=== PATIENT | female | born 1950 | race Caucasian/White ===

== ENCOUNTER 2020-08-13 08:47 | Day surgery (SDC) | payer MEDICARE, BC ==
[2020-08-08 11:22] LABS: BASOPHILS % (AUTO) 0.4 % (0-1); EOSINOPHILS # (AUTO) 0.1 X10'3 (0-0.9); EOSINOPHILS % (AUTO) 1.1 % (0-6); LYMPHOCYTES # (AUTO) 1.7 X10'3 (1.1-4.8); LYMPHOCYTES % (AUTO) 28.8 % (21-51); MEAN CORPUSCULAR HEMOGLOBIN 30.9 PG (27.0-31.0); MEAN CORPUSCULAR HGB CONC 33.5 g/dL (33.0-36.5); MEAN CORPUSCULAR VOLUME 92.1 FL (78-98); MEAN PLATELET VOLUME 8.2 FL (7.4-10.4); MONOCYTES # (AUTO) 0.5 X10'3 (0-0.9); MONOCYTES % (AUTO) 7.7 % (2-12); NEUTROPHILS # (AUTO) 3.6 X10'3 (1.8-7.7); PRE OP HEMATOCRIT 41.9 % (35.0-45.0); PRE OP HEMOGLOBIN 14.1 g/dL (12.0-16.0); PRE OP PLATELET COUNT 237 X10'3 (140-440); RED BLOOD COUNT 4.55 X10'6 (4.20-5.60); RED CELL DISTRIBUTION WIDTH 13.6 % (11.5-14.5)
[2020-08-08 11:37] LABS: ALBUMIN 3.6 G/DL (3.4-5.0); ALKALINE PHOSPHATASE 78 IU/L (46-116); BLOOD UREA NITROGEN 13 MG/DL (7-18); BUN/CREATININE RATIO 20.3 (6.6-38.0); CHLORIDE 106 MMOL/L (99-107); CREATININE 0.64 MG/DL (0.40-0.90); PRE OP ALT 31 U/L (30-65); PRE OP ANION GAP 8 (8-16); PRE OP AST 25 U/L (10-37); PRE OP BILIRUB, TOTAL 0.4 MG/DL (0.0-1.0); PRE OP GLUCOSE 106 MG/DL (70-104); PRE OP POTASSIUM 4.1 MMOL/L (3.4-5.1); PRE OP SODIUM 141 MMOL/L (135-145); TOTAL CARBON DIOXIDE 26.9 MMOL/L (24-32); TOTAL PROTEIN 7.1 G/DL (6.4-8.2); eGFR > 90 ML/MIN
[~2020-08-13] VITALS: Ht 172.7 cm; Wt 103.1 kg
[2020-08-13] VITALS (21 sets, daily range): BP systolic 115–166; BP diastolic 47–89
[~2020-08-13 08:47] MED LIST: ASPI-529 PO; ATOR40TA PO; DOCUMENT DATE & TIME OF BETA-BLOCKER PO ONE; HYDROcodone/acetaminophen 10/325mg tab PO PRN; HYDROmorphone 1 mg/ml syringe IV PRN; HYDROmorphone inj. 0.5 MG/0.5 ML DISP.SYRIN IV PRN; LOSA25TA96 PO; METO-539 PO; acetaminophen 325mg tablet PO ONE; acetaminophen 325mg tablet PO PRN; ascorbic acid 500mg tablet PO SCH; aspirin 325mg tablet PO SCH; bisacodyl 10mg suppository rectal RC PRN; cefazolin/dext.iso 2gm/100ml IV ONE; celeCOXIB 100mg capsule PO ONE; diphenhydrAMINE 25mg capsule PO PRN; famotidine 20mg tablet PO ONE; gabapentin 300mg capsule PO ONE; magnesium hydroxide 30ml (MOM) UD suspension PO PRN; metoclopramide 5 mg/ml inj IV ONE; ondansetron/PF 4mg/2ml inj IV PRN; oxyCODONE SR 10mg (sust. release) tab -2 tabs (20mg) PO ONE; ringers solution, lacted 1,000 ML IV SCH; tranexamic acid 1gm/0.7% sal. 100 ML IV ONE; vancomycin 1,500 MG in NS 300ml IV soln IV ONE
[2020-08-13] MEDS ORDERED: ondansetron/PF 4mg/2ml inj IV PRN (09:20)
[2020-08-13] MEDS ORDERED: meperidine/PF 25mg/ml syringe IV PRN ×3 (09:20)
[2020-08-13] MEDS ORDERED: morphine 4 MG/ML inj SYRINge IV PRN (09:20)
[2020-08-13] MEDS ORDERED: ringers solution, lacted 1,000 ML IV SCH (09:20)
[2020-08-13] MEDS ORDERED: proCHLORperazine 10 MG/2 ml inj IV PRN (09:20)
[2020-08-13] MEDS ORDERED: morphine 2 MG/ML inj. syringe IV PRN (09:20)
[2020-08-13] MEDS ORDERED: ROPIVAcaine 0.5% (5mg/ml) 30ml vial ONE (10:18)
[2020-08-13] MEDS ORDERED: epiNEPHrine 1 mg/ml inj ONE (10:18)
[2020-08-13] MEDS ORDERED: vancomycin 1,000mg inj ONE (10:18)
[2020-08-13] MEDS ORDERED: ketorolac trometh. 30mg/ml inj. ONE (10:18)
[2020-08-13] MEDS ORDERED: sevoflurane 250ml liquid IH ONE (10:40)
[2020-08-13] MEDS ORDERED: fentaNYL/PF 50MCG/1 ML 2ML syringe ONE (10:51)
[2020-08-13] MEDS ORDERED: MIDAZolam 1 MG/ML 5ML VIAL ONE (10:51)
[2020-08-13] MEDS ORDERED: LIDOcaine 2% (20mg/ml) 5ml vial ONE (11:24)
[2020-08-13] MEDS ORDERED: rocuronium 10mg/ml inj IV ONE (11:24)
[2020-08-13] MEDS ORDERED: propofol inj 20 ML IV ONE (11:24)
[2020-08-13] MEDS ORDERED: morphine 10mg/ml inj. ONE (11:45)
[2020-08-13] MEDS ORDERED: ondansetron/PF 4mg/2ml inj ONE (11:47)
[2020-08-13] MEDS ORDERED: dexamethasone sod phosphate 4mg/ml inj. ONE (11:47)
[2020-08-13] MEDS ORDERED: acetaminophen 1,000mg/100ml IV 100 ML IV ONE (12:30)
--- NOTE | 2020-08-13 12:48 | NUR ---
Received from OR via BED IN STABLE CONDITION , accompanied by Anesthesiologist and [employer] OPERATOR report given by Anesthesiraza. Addendum: 08/13/20 at 1346 by Criss Lawrence RN Amended: Links added.
[2020-08-13] MEDS ORDERED: cloNIDine hcl/PF 100mcg/ml inj ONE (13:34)
--- NOTE | 2020-08-13 14:28 | NUR ---
PATIENT TRANSFERRED TO ROOM IN STABLE CONDITION AFTER REPORT GIVEN TO NURSE TAKING OVER PATIENTS CARE. PATIENT TRANSPORTED VIA BED WITH RNX2. Addendum: 08/13/20 at 1633 by Criss Lawrence RN Amended: Links added.
--- NOTE | 2020-08-13 14:28 | NUR ---
RECEIVED REPORT FROM CHAKA IN RECOVERY. PT GOING TO ROOM 7459U
[2020-08-13] MEDS: multivitamins, therapeutics tablet PO SCH (14:30)
[2020-08-13] MEDS: potassium cl 20mEq in 1/2 NS 1,000 ML IV SCH ×3 (14:30→22:44)
--- NOTE | 2020-08-13 15:30 | NUR ---
PT ARRIVED TO UNIT AT 1501
[2020-08-13] MEDS: cefazolin/dext.iso 2gm/100ml 100 ML IV SCH (15:46)
[2020-08-13] MEDS: HYDROcodone/acetaminophen 10/325mg tab PO PRN ×2 (16:00→19:51)
[2020-08-13] MEDS ORDERED: TRANEXAMIC ACID IV ONE (16:00)
[2020-08-13] MEDS ORDERED: NORMAL SALINE IV ONE (16:00)
[2020-08-13] MEDS ORDERED: cyclobenzaprine 10mg tablet PO PRN (16:25)
--- NOTE | 2020-08-13 18:30 | NUR ---
Patient in room ORTH[facility] 4012. I have received report from Sandrine MILLIGAN and had the opportunity to ask questions and assume patient care.
--- NOTE | 2020-08-13 18:36 | NUR ---
Problems reprioritized. Patient report given, questions answered & plan of care reviewed with CHEL PETE.
[2020-08-13] MEDS: ascorbic acid 500mg tablet PO SCH (19:50)
[2020-08-13] MEDS: metoprolol succinate 25mg (24-HOUR) SR. Tablet PO SCH (19:50)
[2020-08-13] MEDS ORDERED: losartan 25mg tablet PO SCH (21:00)
[2020-08-13] MEDS ORDERED: sennosides 8.6mg tablet PO SCH (21:00)
[2020-08-13] MEDS ORDERED: atorvastatin 20mg tablet PO SCH (21:00)
--- NOTE | 2020-08-13 22:00 | NUR ---
Pt only wanted half flexeril gave her 1/2 10mg pill.
[2020-08-13] MEDS: gabapentin 300mg capsule PO SCH (22:02)
[2020-08-13] MEDS ORDERED: VANCOMYCIN 1,500MG inj. 1,500 MG in normal saline 500ml IV soln 500 ML IV SCH (23:00)
[2020-08-14] MEDS: cefazolin/dext.iso 2gm/100ml 100 ML IV SCH (00:48)
[2020-08-14] MEDS: HYDROcodone/acetaminophen 10/325mg tab PO PRN (00:48)
[2020-08-14 02:00] VITALS: BP 157/86
[2020-08-14 06:00] VITALS: BP 145/77
--- NOTE | 2020-08-14 06:31 | NUR ---
Patient in room ORTHO 4012. I have received report from rohit andrade and had the opportunity to ask questions and assume patient care.
--- NOTE | 2020-08-14 06:32 | NUR ---
Problems reprioritized. Patient report given, questions answered & plan of care reviewed with Marleny MILLIGAN.
[2020-08-14 06:37] LABS: BASOPHILS % (AUTO) 0.1 % (0-1); EOSINOPHILS % (AUTO) 0 % (0-6); HEMATOCRIT 36.3 % (35.0-45.0); HEMOGLOBIN 12.3 g/dl (12.0-16.0); LYMPHOCYTES % (AUTO) 10.3 % (21-51); MEAN CORPUSCULAR HEMOGLOBIN 31.4 PG (27.0-31.0); MEAN CORPUSCULAR HGB CONC 33.8 g/dL (33.0-36.5); MEAN PLATELET VOLUME 8.4 FL (7.4-10.4); MONOCYTES # (AUTO) 0.9 X10'3 (0-0.9); NEUTROPHILS # (AUTO) 7.4 X10'3 (1.8-7.7); NEUTROPHILS % (AUTO) 79.6 % (42-75); PLATELET COUNT 224 X10'3 (140-440); RED CELL DISTRIBUTION WIDTH 13.7 % (11.5-14.5); WHITE BLOOD COUNT 9.3 X10'3 (4.5-11.0)
[2020-08-14 06:46] LABS: ANION GAP 8 (8-16); CHLORIDE 104 MMOL/L (99-107); POTASSIUM 4.5 MMOL/L (3.5-5.1); SODIUM 139 MMOL/L (135-145); TOTAL CARBON DIOXIDE 27.4 MMOL/L (24-32)
[2020-08-14] MEDS: potassium cl 20mEq in 1/2 NS 1,000 ML IV SCH (07:00)
[2020-08-14] MEDS: ascorbic acid 500mg tablet PO SCH (07:45)
[2020-08-14] MEDS: gabapentin 300mg capsule PO SCH (07:45)
[2020-08-14] MEDS: multivitamins, therapeutics tablet PO SCH (07:45)
[2020-08-14] MEDS: metoprolol succinate 25mg (24-HOUR) SR. Tablet PO SCH (07:45)
[2020-08-14] MEDS ORDERED: aspirin 325mg tablet PO SCH (08:30)
[2020-08-14 10:31] VITALS: BP 98/44
--- NOTE | 2020-08-14 11:40 | NUR ---
PT DISCHARGED IN STABLE CONDITION. LEFT FACILITY IN PRIVATE VEHICLE WITH . IV DC. FOLLOW UP INSTRUCTIONS GIVEN, ALL QUESTIONS ANSWERED. ALL BELONGINGS IN HAND. Addendum: 08/14/20 at 1141 by Naz Duran RN Amended: Links added.
--- NOTE | 2020-08-14 11:58 | NUR ---
Joint surgery consult: Pt s/p R hip surgery this admit and seen by RD for written/verbal high protein ed w/ RD contact information and ensure O[employer] coupons provided. Pt reports drinks premier proteins at home and cuimmpix-ba-mpo is RD as well. RD encouraged pt to contact dietitian's office if further questions/concerns. Addendum: 08/14/20 at [address] Amended: Links added.
[2020-08-14] MEDS ORDERED: celeCOXIB 100mg capsule PO SCH (20:00)
== END 2020-08-14 11:30 | disposition home or self-care (01) ==
LOC: PAS 08:47 → ORTHO 4S 15:08 → PAS 08-14 11:30
PROVIDERS: ATTEND Orthopaedic Surgery
DX: M16.11 Unilateral primary osteoarthritis, right hip (principal); I10 Essential (primary) hypertension; G62.9 Polyneuropathy, unspecified; G89.29 Other chronic pain; E66.01 Morbid (severe) obesity due to excess calories; Z68.36 Body mass index [BMI] 36.0-36.9, adult; Z98.1 Arthrodesis status; Z90.710 Acquired absence of both cervix and uterus; Z87.891 Personal history of nicotine dependence; Z79.899 Other long term (current) drug therapy; Z88.8 Allergy status to other drugs, medicaments and biological substances; Z79.82 Long term (current) use of aspirin
CPT/HCPCS: 27130; 36415; 71046; 72170; 80051; 80053; 82948; 85025; 86885; 86900; 86901; 87081; 97110; 97161; 97530; C1776; J0131; J0171; J0735; J1100; J1885; J2001; J2175; J2250; J2270; J2405; J2704; J2765; J3010; J3370; J7040; J7120; A4215; A4615; A7000; G0378; J2795; J3480